=== PATIENT | female | born 1970 ===

== ENCOUNTER 2017-08-08 21:10 | Emergency (ER) | payer SELFPAY ==
[2017-08-08 22:27] LABS: Basophils % (Auto) 0.4 % (0.0-1.8); Eosinophils # (Auto) 0.2 K/mm3 (0.0-0.4); Hematocrit 35.4 % (30.3-42.9); Lymphocytes # (Auto) 2.5 K/mm3 (1.2-5.4); Lymphocytes % (Auto) 27.3 % (13.4-35.0); Mean Corpuscular HGB Conc 34 % (30-34); Mean Corpuscular Hemoglobin 30 pg (28-32); Mean Corpuscular Volume 89 fl (79-97); Monocytes # (Auto) 0.6 K/mm3 (0.0-0.8); Monocytes % (Auto) 6.1 % (0.0-7.3); Platelet Count 281 K/mm3 (140-440); Red Blood Count 3.99 M/mm3 (3.65-5.03); Red Cell Distribution Width 13.7 % (13.2-15.2)
[2017-08-08 22:32] LABS: BUN/Creatinine Ratio 22; Blood Urea Nitrogen 11 mg/dL (7-17); Calcium 9.4 mg/dL (8.4-10.2); Hemolysis Index 145
--- NOTE | 2017-08-09 06:08 | Emergency Department Report ---
Minor Respiratory - HPI Chief Complaint: Upper Respiratory Infection Stated Complaint: LOSS OF VOICE Time Seen by Provider: 08/09/17 04:30 Duration: over a week Pain Location: Other (no pain) Minor Respiratory: Yes Rhinorrhea (nasal congestion), Yes Able to Tolerate Fluids, Yes Cough (mild cough), Yes Sick Contacts, Yes Chest Pain, No Sore Throat (hoarseness started yesterday), No Ear Pain, No Hemoptysis, No Shortness of Breath, No Fever Other History: Patient reports that she has nasal congestion and runny nose with postnasal drainage for over a week. She says she's been taking DayQuil but then she started having hoarseness that started yesterday. She denies any pain. Her pain scale of 0-10. Denies any fever or chills. Blood pressure is 148/118 and patient denies any history of high blood pressure but says that because she is coughing and this why her blood pressure is high. She has a history of anemia and fibroids. Denies any chest pain or shortness of breath. Denies any swelling to throat or difficulty swallowing. Denies any drooling. ED Review of Systems ROS: Stated complaint: LOSS OF VOICE Other details as noted in HPI Comment: All other systems reviewed and negative Constitutional: no symptoms reported ENT: congestion, other (hoarseness) Respiratory: cough. denies: orthopnea, shortness of breath, SOB at rest, stridor, wheezing Cardiovascular: denies: chest pain, palpitations, dyspnea on exertion, edema, syncope, paroxysmal nocturnal dyspnea Gastrointestinal: denies: nausea, vomiting Musculoskeletal: denies: back pain, arthralgia Skin: denies: rash Neurological: denies: headache ED Past Medical Hx - Past Medical History Previous Medical History?: Yes Additional medical history: anemia, fibroids - Surgical History Past Surgical History?: No - Family History Family history: no significant - Social History Smoking Status: Never Smoker Substance Use Type: None - Medications Home Medications: Home Medications Medication Instructions Recorded Confirmed Last Taken Type Azithromycin [Zithromax Z-DARRIUS] 250 mg PO DAILY 5 Days #1 pkg 08/09/17 Unknown Rx Cetirizine HCl [ZyrTEC] 10 mg PO QAM 14 Days #14 capsule 08/09/17 Unknown Rx Fluticasone [Flonase] 1 spray NS QDAY 14 Days #1 bottle 08/09/17 Unknown Rx methylPREDNISolone [Medrol Dose 250 mg PO QAM 6 Days #1 pack 08/09/17 Unknown Rx Darrius] Minor Respiratory Exam - Exam General: Vital signs noted. No distress. Alert and acting appropriately. This is a 47-year-old female well-nourished well-developed in no acute distress. HEENT: Yes Moist Mucous Membranes (uvula is midline and oral airways patent), Yes Rhinorrhea (nasal congestion with erythema and clear drainage), No Pharyngeal Erythema, No Pharyngeal Exudates, No Conjuctival Injection, No Frontal Tenderness, No Maxillary Tenderness Ear: Neither TM Bulge (bilateral T and congested), Neither TM Erythema, Neither EAC Pain, Neither EAC Discharge Neck: Yes Supple (full range of motion,no adenopathy), No Adenopathy Lungs: Yes Good Air Exchange (clear to auscultation bilaterally,), Yes Cough ( dry cough), No Wheezes, No Ronchi, No Stridor, No Labored Respirations, No Retractions, No Use of Accessory Muscles, No Other Abnormal Lung Sounds Heart: Yes Regular (S1, S2. Regular rate and rhythm), No Murmur Abdomen: Yes Normal Bowel Sounds, No Tenderness (nontender to palpate in all quadrants, no guarding or rebound tenderness), No Peritoneal Signs Skin: No Rash, No Edema Neurologic: Alert and oriented, no deficits. No focal neurological deficit Musculoskeletal: Unremarkable. Musculoskeletal/extremity: No clubbing, cyanosis or edema. +2 pulses all extremities and no neurovascular compromise. +5/5 strength in all extremities. ED Course Vital Signs 08/08/17 22:01 Temperature 97.9 F Pulse Rate 86 Respiratory 18 Rate Blood Pressure 148/118 O2 Sat by Pulse 98 Oximetry Vital Signs 08/08/17 08/09/17 22:01 06:19 Temperature 97.9 F 99.2 F Pulse Rate 86 64 Respiratory 18 18 Rate Blood Pressure 148/118 Blood Pressure 149/84 [Left] O2 Sat by Pulse 98 100 Oximetry - Reevaluation(s) Reevaluation #1: 08/09/17 06:09 Patient had an uneventful ED stay. ED Medical Decision Making - Lab Data Result diagrams: 08/08/17 22:12 08/08/17 22:12 Lab Results 08/08/17 08/08/17 Range/Units 22:12 22:12 WBC 9.0 (4.5-11.0) K/mm3 RBC 3.99 (3.65-5.03) M/mm3 Hgb 12.0 (10.1-14.3) gm/dl Hct 35.4 (30.3-42.9) % MCV 89 (79-97) fl MCH 30 (28-32) pg MCHC 34 (30-34) % RDW 13.7 (13.2-15.2) % Plt Count 281 (140-440) K/mm3 Lymph % (Auto) 27.3 (13.4-35.0) % [facility] % (Auto) 6.1 (0.0-7.3) % Eos % (Auto) 2.0 (0.0-4.3) % Baso % (Auto) 0.4 (0.0-1.8) % Lymph # 2.5 (1.2-5.4) K/mm3 [facility] # 0.6 (0.0-0.8) K/mm3 Eos # 0.2 (0.0-0.4) K/mm3 Baso # 0.0 (0.0-0.1) K/mm3 Seg Neutrophils % 64.2 (40.0-70.0) % Seg Neutrophils # 5.8 (1.8-7.7) K/mm3 Sodium 138 (137-145) mmol/L Potassium 4.0 (3.6-5.0) mmol/L Chloride 97.6 L (98-107) mmol/L Carbon Dioxide 24 (22-30) mmol/L Anion Gap 20 mmol/L BUN 11 (7-17) mg/dL Creatinine 0.5 L (0.7-1.2) mg/dL Estimated GFR > 60 ml/min BUN/Creatinine Ratio 22 % Glucose 105 H (65-100) mg/dL Calcium 9.4 (8.4-10.2) mg/dL - Medical Decision Making ED course: Patient here complaining of hoarseness that started with nasal congestion and runny nose and cough and over a week ago now developed hoarseness for one day. Found to have upper respiratory infection with cough and congestion. Blood pressure was elevated a 148/118 without any history of high blood pressure. Patient vital signs are stable she had CBC and chemistry done which are in normal limits. I discussed patient that she has acute laryngitis from postnasal drainage, coughing and upper respiratory infection. I discussed diagnosis, treatment plan and follow-up with her. Patient does not have a primary care physician and I discussed with her that she can cause outside [facility] to follow-up in 2 days. Patient discharged home with prescription for Medrol Dosepak, Z-Darrius, Zyrtec and Flonase. Her vital signs are stabilized to blood pressure is now 149/84. I discussed the patient she'll need to keep a log of her blood pressure and take to primary care visit with her for evaluation. Critical care attestation.: If time is entered above; I have spent that time in minutes in the direct care of this critically ill patient, excluding procedure time. ED Disposition Clinical Impression: Upper respiratory infection with cough and congestion, Acute laryngitis, Elevated BP without diagnosis of hypertension Disposition: DC-01 TO HOME OR SELFCARE Is pt being admited?: No Does the pt Need Aspirin: No Condition: Stable Instructions: Laryngitis (ED), Upper Respiratory Infection (ED), Hypertension ( ED), Acute Cough (ED) Additional Instructions: Please take antibiotic as prescribed Zyrtec and Flonase will help to relieve congestion Steroids will help to relieve inflammation from laryngitis. Gargle warm salt water. Follow-up with outside Medical [facility] for primary care Keep a log of your blood pressure and take to primary care visit with you. Prescriptions: Azithromycin [Zithromax Z-DARRIUS] 250 mg PO DAILY 5 Days #1 pkg Cetirizine HCl [ZyrTEC] 10 mg PO QAM 14 Days #14 capsule Fluticasone [Flonase] 1 spray NS QDAY 14 Days #1 bottle methylPREDNISolone [Medrol Dose Darrius] 250 mg PO QAM 6 Days #1 pack Referrals: [facility] [Outside] - 08/11/17 Forms: Work/School Release Form(ED)
[2017-08-09 06:19] VITALS: BP 149/84
== END 2017-08-09 06:20 | disposition home or self-care (01) ==
LOC: ED 21:10
DX: J04.0 Acute laryngitis (principal); R03.0 Elevated blood-pressure reading, without diagnosis of hypertension; D21.9 Benign neoplasm of connective and other soft tissue, unspecified; Z86.2 Personal history of diseases of the blood and blood-forming organs and certain disorders involving the immune mechanism; Z88.0 Allergy status to penicillin
CPT/HCPCS: 36415; 80048; 85025; 99283